=== PATIENT | female | born 1950 | race African-American/Black ===

== ENCOUNTER 2016-05-17 13:26 | Emergency (ER) | payer MEDICARE, OTHER ==
[~2016-05-17] VITALS: Ht 167.6 cm; Wt 65.0 kg
[2016-05-17] MEDS ORDERED: LORAZEPAM 1MG TABLET PO ONE (14:30)
[2016-05-17 14:36] LABS: HEMATOCRIT. 29.6 % (36.0-48.0); HEMOGLOBIN. 9.8 g/dL (12.0-16.0); MEAN CORPUSCULAR HEMOGLOBIN 34.2 pg (28.0-32.0); MEAN CORPUSCULAR HGB CONC 33.2 g/dL (31.0-37.0); MEAN CORPUSCULAR VOLUME 102.9 fL (81.0-99.0); MEAN PLATELET VOLUME 8.2 fl (7.4-10.4); PLATELET 267 x1000/uL (130-400); RED BLOOD CELL COUNT 2.88 mill/uL (4.2-5.4); RED CELL DISTRIBUTION WIDTH 16.7 % (11.6-14.6); WHITE BLOOD COUNT 7.9 x1000/uL (4.5-11.0)
[2016-05-17 14:38] LABS: DIFFERENTIAL COMMENT 1
[2016-05-17 14:53] LABS: ALANINE AMINOTRANSFERASE 36 IU/L (13-61); ALBUMIN 3.1 g/dL (3.4-5.0); ANION GAP 17; CALCIUM 7.5 mg/dL (8.5-10.1); CARBON DIOXIDE 26 mEq/L (21-32); CHLORIDE 96 mEq/L (98-107); ETHANOL BLOOD < 10 mg/dL; INDEX HEMOLYSI 1 (1-3); INDEX ICTERIC 1 (1-4); INDEX LIPEMIC 1 (1-3); TROPONIN I < 0.02 ng/mL (0.00-0.04); UREA NITROGEN BLOOD 12 mg/dL (7-21); eGFR > 60 mL/min (>60)
[2016-05-17 14:56] LABS: NUCLEATED RED BLOOD CELLS 6 /100 WBC; PLATELET ESTIMATE NORMAL
[2016-05-17] MEDS ORDERED: ONDANSETRON 4MG ODT PO ONE (16:15)
[2016-05-17] MEDS ORDERED: SODIUM CHLORIDE 0.9% 2,000 ML IV ONE (16:15)
[2016-05-17] MEDS ORDERED: LORAZEPAM 2MG/ML CPJ IV ONE (18:00)
[2016-05-17] MEDS ORDERED: POTASSIUM CHLORIDE 20MEQ TABLET SR PO NR (18:00)
[2016-05-17 18:50] VITALS: BP 123/76
== END 2016-05-17 20:37 | disposition home or self-care (01) ==
LOC: ER 13:57
DX: I95.1 Orthostatic hypotension (principal); R55 Syncope and collapse; E86.0 Dehydration; E11.9 Type 2 diabetes mellitus without complications; F10.10 Alcohol abuse, uncomplicated; Y90.0 Blood alcohol level of less than 20 mg/100 ml
CPT/HCPCS: 36415; 80053; 84484; 85025; 93005; 96360; 96361; 99285; G0482; J7030; Q0162; J2060

== ENCOUNTER 2021-12-21 21:16 | Inpatient (IN) | payer MEDICARE, MEDICAID ==
[~2021-12-21] VITALS: Ht 167.6 cm; Wt 71.7 kg
[~2021-12-21 21:16] MED LIST: FOLI-43 PO; L25 PO; THIA100T72 PO
[2021-12-22 00:35] LABS: BASOPHILS % 0.5 % (0.0-2.0); EOSINOPHILS % 1.3 % (0.0-5.0); HEMATOCRIT. 36.3 % (36.0-48.0); HEMOGLOBIN. 11.9 g/dL (12.0-16.0); LYMPHOCYTES % 55.4 % (20.0-50.0); MEAN CORPUSCULAR HEMOGLOBIN 29.8 pg (28.0-32.0); MEAN CORPUSCULAR VOLUME 91.2 fL (81.0-99.0); MEAN PLATELET VOLUME 7.9 fl (7.4-10.4); MONOCYTES % 6.2 % (2.0-8.0); NEUTROPHILS % 36.6 % (40.0-76.0); PLATELET 223 x1000/uL (130-400); RED BLOOD CELL COUNT 3.98 mill/uL (4.2-5.4); RED CELL DISTRIBUTION WIDTH 13.9 % (11.6-14.6)
[2021-12-22 00:50] LABS: CLARITY URINE CLEAR (CLEAR); COLOR URINE YELLOW (YELLOW); KETONES URINE NEGATIVE (NEGATIVE); LEUKOCYTE ESTERASE URINE 2+ (NEGATIVE); NITRITE URINE NEGATIVE (NEGATIVE); OCCULT BLOOD URINE NEGATIVE (NEGATIVE); PROTEIN URINE NEGATIVE (NEGATIVE); SPECIFIC GRAVITY URINE 1.015 (1.005-1.030); UROBILINOGEN URINE 0.2 E.U./dL (0.2-1.0)
[2021-12-22 00:50] LABS: CHLORIDE 104 mEq/L (98-107)
[2021-12-22] MEDS ORDERED: CEFTRIAXONE 1 G PREMIX 50 ML IV ONE (02:00)
[2021-12-22] MEDS ORDERED: ASPIRIN 325MG EC TABLET PO ONE (02:15)
[2021-12-22 08:00] VITALS: BP 136/52
[2021-12-22 10:00] VITALS: BP 136/52
[2021-12-22] MEDS ORDERED: DEXTROSE 50% WATER 50ML SYRINGE IV PRN (10:15)
[2021-12-22 12:00] VITALS: BP 112/61
[2021-12-22] MEDS ORDERED: CLONIDINE 0.1MG TABLET PO PRN (12:00)
[2021-12-22] MEDS ORDERED: ACETAMINOPHEN 325MG TABLET PO PRN (12:00)
[2021-12-22] MEDS ORDERED: ONDANSETRON HCL 4MG/2ML INJ IV PRN (12:00)
[2021-12-22] MEDS ORDERED: MAGNESIUM/ALUMINUM HYDROXIDE/SIMETHICONE 30ML UDC PO PRN (12:00)
[2021-12-22] MEDS: BLOOD SUGAR DIAGNOSTIC STRIP TEST SCH ×3 (12:20→21:00)
[2021-12-22] MEDS ORDERED: LATA2.5D14 EACHEYE (13:25)
[2021-12-22] MEDS ORDERED: PIOG15TA66 MT (13:25)
[2021-12-22] MEDS ORDERED: TRAZ-251 MT (13:25)
[2021-12-22] MEDS ORDERED: DORZ10DR8 EACHEYE (13:25)
[2021-12-22] MEDS ORDERED: PIOG15TA66 PO (13:25)
[2021-12-22] MEDS: ASPIRIN 81MG TABLET PO SCH (13:50)
[2021-12-22] MEDS: INSULIN LISPRO 100 UNITS/ML SUBCUT SCH ×3 (13:50→21:38)
[2021-12-22] MEDS: ENOXAPARIN 40MG/0.4ML SYR SUBCUT SCH (13:50)
[2021-12-23] VITALS (10 sets, daily range): BP systolic 78–186; BP diastolic 45–69
[2021-12-23] MEDS: DORZOLAMIDE 2% OPHTH 10 ML BOTTLE BOTHEYE SCH ×4 (00:04→21:34)
[2021-12-23] MEDS: LATANOPROST 0.005% OPHTH DROPS 2.5ML BOTHEYE SCH ×2 (00:04→21:00)
[2021-12-23] MEDS: LISINOPRIL 20MG TABLET PO SCH ×2 (00:05→09:00)
[2021-12-23] MEDS: CHLORDIAZEPOXIDE 25MG CAPSULE PO SCH ×3 (00:06→17:00)
[2021-12-23] MEDS: TRAZODONE HCL 50MG TABLET PO SCH ×2 (00:06→21:35)
[2021-12-23 00:39] LABS: *AMPHETAMINES SCREEN URINE NEGATIVE (NEGATIVE); *BARBITURATES SCREEN URINE NEGATIVE (NEGATIVE); *BENZODIAZEPINES SCREEN URINE NEGATIVE (NEGATIVE); *COCAINE SCREEN URINE NEGATIVE (NEGATIVE); CANNABINOID URINE SCREEN NEGATIVE (NEGATIVE); METHADONE URINE SCREEN NEGATIVE (NEGATIVE); OPIATES URINE SCREEN NEGATIVE (NEGATIVE); PHENCYCLIDINE URINE SCREEN NEGATIVE (NEGATIVE)
[2021-12-23] MEDS: BLOOD SUGAR DIAGNOSTIC STRIP TEST SCH ×4 (07:33→21:34)
[2021-12-23] MEDS: METFORMIN HCL 500MG TABLET PO SCH ×2 (07:50→10:09)
[2021-12-23 08:29] LABS: BASOPHILS % 0.5 % (0.0-2.0); EOSINOPHILS % 1.5 % (0.0-5.0); HEMATOCRIT. 34.1 % (36.0-48.0); HEMOGLOBIN. 11.5 g/dL (12.0-16.0); MEAN CORPUSCULAR HEMOGLOBIN 30.1 pg (28.0-32.0); MEAN CORPUSCULAR VOLUME 89.3 fL (81.0-99.0); MEAN PLATELET VOLUME 8.3 fl (7.4-10.4); PLATELET 227 x1000/uL (130-400); RED BLOOD CELL COUNT 3.82 mill/uL (4.2-5.4); RED CELL DISTRIBUTION WIDTH 13.8 % (11.6-14.6)
[2021-12-23] MEDS: FOLIC ACID 1MG TABLET PO SCH (10:10)
[2021-12-23] MEDS: THIAMINE HCL 100MG TABLET PO SCH (10:10)
[2021-12-23] MEDS: ASPIRIN 81MG TABLET PO SCH (10:10)
[2021-12-23] MEDS: INSULIN LISPRO 100 UNITS/ML SUBCUT SCH ×4 (10:11→21:00)
[2021-12-23 16:23] LABS: PHOSPHORUS 4.7 mg/dL (2.5-4.9); T4 FREE 1.41 ng/dL (0.76-1.46)
[2021-12-23] MEDS: SODIUM CHLORIDE 0.9% 500 ML IV NR ×2 (16:41→19:10)
[2021-12-23] MEDS: ENOXAPARIN 40MG/0.4ML SYR SUBCUT SCH (16:41)
[2021-12-23 17:19] LABS: CHLORIDE 106 mEq/L (98-107)
[2021-12-24] VITALS: BP 115/59
[2021-12-24 04:08] VITALS: BP 100/53
[2021-12-24] MEDS: BLOOD SUGAR DIAGNOSTIC STRIP TEST SCH ×3 (06:22→17:27)
[2021-12-24 07:46] LABS: BASOPHILS % 0.4 % (0.0-2.0); EOSINOPHILS % 1.4 % (0.0-5.0); HEMATOCRIT. 35.1 % (36.0-48.0); HEMOGLOBIN. 11.5 g/dL (12.0-16.0); LYMPHOCYTES % 50.1 % (20.0-50.0); MEAN CORPUSCULAR HEMOGLOBIN 29.5 pg (28.0-32.0); MEAN CORPUSCULAR VOLUME 89.9 fL (81.0-99.0); MEAN PLATELET VOLUME 8.8 fl (7.4-10.4); MONOCYTES % 6.5 % (2.0-8.0); NEUTROPHILS % 41.6 % (40.0-76.0); PLATELET 224 x1000/uL (130-400); RED BLOOD CELL COUNT 3.91 mill/uL (4.2-5.4); RED CELL DISTRIBUTION WIDTH 13.8 % (11.6-14.6)
[2021-12-24 08:00] VITALS: BP 123/59
[2021-12-24] MEDS: THIAMINE HCL 100MG TABLET PO SCH (08:49)
[2021-12-24] MEDS: ASPIRIN 81MG TABLET PO SCH (08:49)
[2021-12-24] MEDS: FOLIC ACID 1MG TABLET PO SCH (08:49)
[2021-12-24] MEDS: INSULIN LISPRO 100 UNITS/ML SUBCUT SCH ×3 (08:50→17:59)
[2021-12-24] MEDS: DORZOLAMIDE 2% OPHTH 10 ML BOTTLE BOTHEYE SCH ×2 (08:58→13:08)
[2021-12-24 12:00] VITALS: BP 119/53
[2021-12-24] MEDS: ENOXAPARIN 40MG/0.4ML SYR SUBCUT SCH (13:06)
[2021-12-24] MEDS: BUTALBITAL/ACETAMINOPHEN/CAFFEINE 50/325/40MG TABLET PO PRN ×2 (13:07→18:12)
[2021-12-24 16:00] VITALS: BP 110/53
[2021-12-24] MEDS ORDERED: METF-873 MT (16:23)
[2021-12-24] MEDS ORDERED: CLOP-31 MT (16:23)
[2021-12-24] MEDS ORDERED: ASPI-1160 PO (16:23)
[2021-12-24 17:14] VITALS: BP 110/53
== END 2021-12-24 18:15 | disposition home health service (06) | DRG 65 ==
LOC: ER 21:16 → 6WST 12-22 02:14 → EDBEDREQTM 12-22 02:32 → EDBEDREQ 12-22 02:32 → ENRESERV 12-22 06:54
PROVIDERS: ADMIT Internal Medicine; ATTEND Internal Medicine
PROC: 4A00X4Z Measurement of Central Nervous Electrical Activity, External Approach (ICD-10-PCS; principal; 2021-12-23)
DX: I63.81 Other cerebral infarction due to occlusion or stenosis of small artery (principal); N39.0 Urinary tract infection, site not specified; E11.9 Type 2 diabetes mellitus without complications; I10 Essential (primary) hypertension; I95.9 Hypotension, unspecified; H40.9 Unspecified glaucoma; R55 Syncope and collapse; R26.89 Other abnormalities of gait and mobility; R29.6 Repeated falls; H93.19 Tinnitus, unspecified ear; F32.A Depression, unspecified; F41.9 Anxiety disorder, unspecified; F10.10 Alcohol abuse, uncomplicated; Z91.81 History of falling; Z83.3 Family history of diabetes mellitus
CPT/HCPCS: 36415; 70551; 71045; 80048; 80053; 80061; 80305; 80320; 81003; 82962; 83036; 83735; 84100; 84439; 84443; 84484; 85025; 93005; 93306; 93880; 93970; 95816; 97162; 99291; J0696; J1650; J1815; J2405; G0480